=== PATIENT | male | born 1975 | race Asian ===

== ENCOUNTER 2020-04-26 18:41 | Emergency (ER) | payer OTHER ==
[~2020-04-26] VITALS: Ht 185.4 cm; Wt 74.4 kg
[2020-04-26 18:57] VITALS: Ht 185.4 cm; Wt 74.4 kg
[2020-04-26 21:13] VITALS: BP 104/40
== END 2020-04-26 21:10 | disposition home or self-care (01) ==
LOC: ED 18:41
DX: R42 Dizziness and giddiness (principal); R51.9 Headache, unspecified; R11.2 Nausea with vomiting, unspecified
CPT/HCPCS: J7030; J8597